=== PATIENT | male | born 1940 | race Caucasian/White ===

== ENCOUNTER 2018-02-13 22:53 | Emergency (ER) | payer MEDICARE, OTHER ==
[~2018-02-13] VITALS: Ht 172.7 cm; Wt 101.8 kg
[2018-02-13 22:56] VITALS: Ht 172.7 cm; Wt 101.8 kg
[2018-02-13] MEDS ORDERED: NEURONTIN 300300 MG PO (22:58)
[2018-02-13] MEDS ORDERED: NEXIUM20 MG PO (22:58)
[2018-02-13] MEDS ORDERED: PREVALITE POWD231 GM (22:59)
[2018-02-13] MEDS ORDERED: ASPIRIN81 MG (22:59)
[2018-02-13] MEDS ORDERED: CIALIS10 MG PO (22:59)
[2018-02-13] MEDS ORDERED: VOLTAREN75 MG PO (23:29)
[2018-02-13] MEDS ORDERED: SKELAXIN800 MG PO (23:29)
[2018-02-14 00:17] VITALS: BP 142/78
== END 2018-02-14 00:12 | disposition home or self-care (01) ==
LOC: D.ER 22:53
DX: M54.5 Low back pain (principal); M62.838 Other muscle spasm

== ENCOUNTER → 2018-02-19 09:08 | Outpatient (CLI) | payer MEDICARE, OTHER ==
[2018-02-13 22:56] VITALS: BMI 34.1
[~2018-02-19 09:08] MED LIST: ASPIRIN81 MG; CIALIS10 MG PO; NEURONTIN 300300 MG PO; NEXIUM20 MG PO; PREVALITE POWD231 GM; SKELAXIN800 MG PO; VOLTAREN75 MG PO
== END | disposition home or self-care (01) ==
LOC: D.CT 09:00
DX: M25.552 Pain in left hip (principal)

== ENCOUNTER → 2018-03-03 10:03 | Outpatient (CLI) | payer MEDICARE, OTHER ==
[2018-02-13 22:56] VITALS: BMI 34.1
== END | disposition home or self-care (01) ==
LOC: D.CT 10:03
DX: M48.061 Spinal stenosis, lumbar region without neurogenic claudication (principal)

== ENCOUNTER → 2019-01-05 08:51 | Outpatient (CLI) | payer MEDICARE, OTHER ==
[2018-02-13 22:56] VITALS: BMI 34.1
== END | disposition home or self-care (01) ==
LOC: D.RAD 08:51
PROVIDERS: ATTEND Pain Medicine Interventional Pain Medicine
DX: M48.062 Spinal stenosis, lumbar region with neurogenic claudication (principal)